=== PATIENT | male | born 2000 | race Caucasian/White ===

== ENCOUNTER 2022-11-03 09:44 | Outpatient (CLI) | payer MEDICARE | END 2022-11-03 09:45 | disposition home or self-care (01) | LOC: NAV CT 09:44 | PROVIDERS: ATTEND Psychiatry & Neurology Neurology | DX: G40.209 Localization-related (focal) (partial) symptomatic epilepsy and epileptic syndromes with complex partial seizures, not intractable, without status epilepticus (principal) | CPT/HCPCS: 70450 ==